=== PATIENT | male | born 1975 | race Caucasian/White ===

== ENCOUNTER 2023-10-07 18:42 | Emergency (ER) | payer OTHER, SELFPAY ==
--- NOTE | ~2023-10-07 | CT_ITS ---
CT abdomen pelvis w con Ordering provider: Saman Bajwa MD History: 48 years Male with . LLQ pain . Comparison: April 18, 2016 Technique: CT abdomen and pelvis with IV and without oral contrast. Automated exposure control and it erative reconstruction technique were employed. The dose-length product was 1117.46 mGy-cm. 100 MLO O mnipaque 350 was given IV. Findings: VISUALIZED LOWER CHEST: Normal. UPPER ABDOMINAL ORGANS: Liver: Normal. Gallbladder: Normal. Spleen: Normal. Stomach/duodenum: Normal. Pancreas: Normal. Adrenals: Normal. Kidneys: Normal. PELVIC ORGANS: The bladder shows thickened wall suggestive of cystitis versus infiltrative process. C ystoscopy advised.. BOWEL AND MESENTERY: Colon: Diverticulitis seen in the sigmoid colon area. No free air or fluid seen. No abscess formation seen. Follow-up advised. Fecal material is loaded in the colon. Normal appendix. Small Bowel: Normal. No obstruction. Peritoneum/mesentery: No free air or free fluid. No mesenteric lymphadenopathy. RETROPERITONEUM: Normal aorta. No retroperitoneal lymphadenopathy. MUSCULOSKELETAL: Superficial soft tissues: Left inguinal fat containing hernia. The superficial soft tissues are elmer l. Bones: Age appropriate degenerative changes of the spine. IMPRESSION: 1. Diverticulitis in the sigmoid colon. 2. Thickened wall of the urinary bladder. Cystoscopy is advised. Reviewed, dictated and finalized at location A.
[2023-10-07 18:47] VITALS: BP 130/90; PULSE 99; RESP 16; TEMP 36.8; O2SAT 100
[2023-10-07 20:45] LABS: Basophils Percent Auto 0.4 % (0.2-1.2); Eosinophils Absolute Auto 0.2 K/mm3 (0-0.3); Eosinophils Percent Auto 1.5 % (0-4.4); Hematocrit 40.7 % (42.0-52.0); Hemoglobin 14.1 g/dL (14.0-18.0); Immature Granulocyte Absolute 0.03 K/mm3 (0.00-0.031); Immature Granulocyte Percent A 0.3 % (0-0.5); Lymphocytes Absolute Auto 1.64 K/mm3 (0.9-3.2); Lymphocytes Percent Auto 16.8 % (18.3-44.2); Mean Corpuscular HGB Conc 34.6 g/dl (32-36); Mean Corpuscular Hemoglobin 30.7 pg (26-34); Mean Corpuscular Volume 88.5 fl (80-100); Mean Platelet Volume 9.8 fl (7.4-10.4); Monocytes Percent Auto 10.3 % (2.6-8.5); Neutrophils Absolute Auto 6.9 K/mm3 (1.3-6.7); Neutrophils Percent Auto 70.7 % (45.5-73.1); Platelet Count Result 251 k/mm3 (150-375); Red Cell Distribution Width 12.9 % (11.5-14.5); White Blood Count 9.8 K/mm3 (4.5-10.0)
[2023-10-07 21:00] VITALS: BP 133/96; PULSE 92; RESP 20; TEMP 37; O2SAT 98
[2023-10-07 21:01] LABS: Alanine Aminotransferase 44 U/L (6-50); Albumin Level 4.4 g/dL (3.5-5.1); Alkaline Phosphatase 72 U/L (38-126); Anion Gap 10 mmol/L (4-12); Aspartate Amino Transferase 37 U/L (17-59); Bilirubin,Total 0.7 mg/dL (0.2-1.3); Blood Urea Nitrogen 16 mg/dL (9-20); Calcium 8.7 mg/dL (8.4-10.2); Carbon Dioxide 29 mmol/L (22-30); Chloride 99 mmol/L (98-107); Estimated CRCL calculation 90 ml/min; Estimated Glomerular Filt Rate > 60; Glucose 114 mg/dL (65-110); Potassium 4.2 mmol/L (3.4-5.0); Sodium 138 mmol/L (137-145)
--- NOTE | 2023-10-07 21:23 | ED.GENADULT ---
HPI - General Adult General Chief complaint: Abdominal Pain <Saman Bajwa MD - Last Filed: 10/07/23 21:35> Stated complaint: abd pain <Saman Bajwa MD - Last Filed: 10/07/23 21:35> Time Seen by Provider: 10/07/23 20:23 <Saman Bajwa MD - Last Filed: 10/07/23 21:35> History of Present Illness HPI narrative: Patient is a 48-year-old male who presents ER with lower abdominal pain. Over last week he has been having diarrhea. Pain worse from last couple days. Has history of diverticulitis. No blood in stool. No fevers or chills or sweats. No alleviating factors. <Saman Bajwa MD - Last Filed: 10/07/23 21:35> Related Data Allergies/adverse reactions: Allergies Allergy/AdvReac Type Severity Reaction Status Date / Time No Known Allergies Allergy Unverified 06/19/16 15:06 <Saman Bajwa MD - Last Filed: 10/07/23 21:35> Review of Systems Review of Systems: All systems reviewed & are unremarkable except as noted in HPI and below <Saman Bajwa MD - Last Filed: 10/07/23 21:35> Constitutional: Constitutional: Reports no additional constitutional complaints <Saman Bajwa MD - Last Filed: 10/07/23 21:35> Cardiovascular: Cardiovascular: Reports no additional cardiovascular complaints <Saman Bajwa MD - Last Filed: 10/07/23 21:35> Respiratory: Respiratory: Reports no additional respiratory complaints <Saman Bajwa MD - Last Filed: 10/07/23 21:35> Gastrointestinal: Gastrointestinal: Reports abdominal pain, Reports diarrhea, Denies nausea and Denies vomiting <Saman Bajwa MD - Last Filed: 10/07/23 21:35> Genitourinary: Genitourinary: Reports no additional male genitourinary complaints <Saman Bajwa MD - Last Filed: 10/07/23 21:35> PMFSH Past Medical History Medical History: Medical History (Updated 10/07/23 @ 23:26 by Homer Silva MD) Diverticulitis <Saman Bajwa MD - Last Filed: 10/07/23 21:35> Surgical History Surgical History: Surgical History (Updated 10/07/23 @ 21:25 by Saman Bajwa MD) History of knee surgery <Saman Bajwa MD - Last Filed: 10/07/23 21:35> Exam Narrative: GENERAL: Well-appearing, well-nourished, and in no acute distress. HEAD: Normocephalic, atraumatic. ENT: Mucous membranes moist. CHEST: Clear to auscultation. No respiratory distress. HEART: Regular rate and rhythm. Normal peripheral pulses. ABDOMEN: Soft, tender to palpation left lower quadrant with guarding nondistended. EXTREMITIES: Normal range of motion. No edema. SKIN: Warm, dry, no rash. NEURO: Alert and oriented x3. PSYCH: Normal mood and affect. <Saman Bajwa MD - Last Filed: 10/07/23 21:35> Course Course Emergency Course: MISAEL to Dr. Silva pending CT. <Saman Bajwa MD - Last Filed: 10/07/23 21:35> MISAEL to Dr. Silva pending CT. CT scan showed acute diverticulitis Patient was started on oral antibiotics and will be referred to follow-up with his primary care provider <Homer Silva MD - Last Filed: 10/07/23 23:27> Vital Signs Vital signs: Vital Signs Temperature 36.8 C 10/07/23 18:47 Pulse Rate 99 10/07/23 18:47 Respiratory Rate 16 10/07/23 18:47 Blood Pressure 130/90 10/07/23 18:47 Pulse Oximetry 100 10/07/23 18:47 Oxygen Delivery Room Air 10/07/23 18:47 Temperature 37.0 C 10/07/23 21:00 Pulse Rate 92 10/07/23 21:00 Respiratory Rate 20 10/07/23 21:00 Blood Pressure 133/96 H 10/07/23 21:00 Pulse Oximetry 98 10/07/23 21:00 Oxygen Delivery Room Air 10/07/23 18:47 <Saman Bajwa MD - Last Filed: 10/07/23 21:35> Vital Signs Temperature 36.8 C 10/07/23 18:47 Pulse Rate 99 10/07/23 18:47 Respiratory Rate 16 10/07/23 18:47 Blood Pressure 130/90 10/07/23 18:47 Pulse Oximetry 100 10/07/23 18:47 Oxygen Delivery Room Air 10/07/23 18:47 Temperature 3
[2023-10-07 23:30] VITALS: BP 106/71; PULSE 92; RESP 16; O2SAT 100
[2023-10-07] MEDS: metroNIDAZOLE 500 MG TABLET PO (23:35)
[2023-10-07] MEDS: CIPROFLOXACIN 500 MG TAB PO (23:36)
[2023-10-07] MEDS: MORPHINE SULFATE (*CRX) 4 MG/ML INJ IV PUSH (23:38)
== END 2023-10-07 23:40 | disposition home or self-care (01) ==
PROVIDERS: Emergency Medicine; Emergency Provider Emergency Medicine; PCP Internal Medicine
DX: K57.32 Diverticulitis of large intestine without perforation or abscess without bleeding (principal); R93.41 Abnormal radiologic findings on diagnostic imaging of renal pelvis, ureter, or bladder
CPT/HCPCS: 36415; 74177; 80053; 85025; 96374; 99284; A9270; J2270; Q9967